=== PATIENT | male | born 1960 | race Caucasian/White ===

== ENCOUNTER 2020-08-05 16:40 | Outpatient (CLI) | payer OTHER, SELFPAY | END 2020-08-05 16:41 | disposition home or self-care (01) | LOC: ANHCOVIDVC 16:40 | PROVIDERS: PCP Family Medicine | DX: Z23 Encounter for immunization (principal) | CPT/HCPCS: 0001A; 91300 ==

== ENCOUNTER 2020-08-26 16:39 | Outpatient (CLI) | payer OTHER, SELFPAY | END 2020-08-26 16:40 | disposition home or self-care (01) | LOC: ANHCOVIDVC 16:39 | PROVIDERS: PCP Family Medicine | DX: Z23 Encounter for immunization (principal) | CPT/HCPCS: 0002A; 91300 ==

== ENCOUNTER 2020-12-28 16:11 | Outpatient (CLI) | payer BC, SELFPAY ==
--- NOTE | ~2020-12-28 | XR_ITS ---
EXAMINATION: XR chest 2V DATE: 12/28/2020 16:49 INDICATION: Shortness of breath and cough TECHNIQUE: PA and lateral views of the chest are obtained. COMPARISON: 08/12/2017 FINDINGS: There is subtle patchy opacities throughout the lungs. A suture line is noted in the right midlung zone. There is no pleural effusion or pneumothorax. The cardiomediastinal silhouette is renetta l. There is mild thoracic spondylosis. IMPRESSION: 1. Subtle patchy opacities of the lungs, consistent with atelectasis versus pneumonia. Reviewed, dictated and finalized at location B. IMPRESSION: 1. Subtle patchy opacities of the lungs, consistent with atelectasis versus pne umonia.
== END 2020-12-28 16:12 | disposition home or self-care (01) ==
LOC: ANHIMG 16:18
PROVIDERS: PCP Family Medicine; Visit Provider Nurse Practitioner Family
DX: U07.1 COVID-19 (principal)
CPT/HCPCS: 71046

== ENCOUNTER 2021-01-30 13:09 | Outpatient (CLI) | payer BC, SELFPAY ==
--- NOTE | ~2021-01-30 | XR_ITS ---
XR shoulder RT min 2V DATE: 01/30/2021 13:31 INDICATION: Right shoulder pain TECHNIQUE: 4 views COMPARISON: None FINDINGS: No fracture or dislocation, periosteal reaction or bone destruction or abnormal soft tissue calcification. Radiopaque sutures of the right lung are incidentally noted. IMPRESSION: Negative right shoulder Reviewed, dictated and finalized at location B. IMPRESSION: Negative right shoulder
== END 2021-01-30 13:10 | disposition home or self-care (01) ==
LOC: ANHIMG 13:11
PROVIDERS: PCP Family Medicine; Visit Provider Nurse Practitioner Family
DX: J18.9 Pneumonia, unspecified organism (principal); M25.511 Pain in right shoulder
CPT/HCPCS: 73030

== ENCOUNTER → 2021-07-19 16:32 | Outpatient (CLI) | payer BC, SELFPAY ==
--- NOTE | ~2021-07-19 | MR_ITS ---
EXAMINATION: MR shoulder RT wo con DATE: 07/19/2021 17:26 INDICATION: Right shoulder pain. TECHNIQUE: Magnetic resonance imaging (MRI) of the right shoulder was performed without intravenous c ontrast. Sequences included axial PD-weighted FS FSE, coronal oblique PD-weighted FS FSE and T2-weigh partha FS FSE, and sagittal oblique T2-weighted FS FSE and T1-weighted FSE. COMPARISON: Right shoulder radiographs 01/30/2021 FINDINGS: Coracoacromial arch: The acromion undersurface is curved in morphology (type II). There is severe acromioclavicular joint osteoarthritis including inferiorly directed osteophytes. There is moderate subacromial/subdeltoid bu rsitis. Rotator cuff: There is a full-thickness tear of anterior supraspinatus tendon measuring 15 mm anterior to posterior by 19 mm proximal to distal. There is a small interstitial tear of infraspinatus tendon. Teres minor tendon is normal. There is an interstitial tear of superior subscapularis tendon. There is no asymme tric fatty atrophy of the rotator cuff muscle bellies. Biceps tendon and glenoid labrum: Biceps tendon is in bicipital groove. There is a partial tear of biceps tendon. There is degenerative tearing of the glenoid labrum. Fluid: There is a small glenohumeral joint effusion. Bones/cartilage: There is shallow partial-thickness cartilage loss of glenoid. There is cartilage surface irregularity of humeral head. IMPRESSION: 1. Full-thickness rotator cuff tear. 2. Mild glenohumeral joint chondrosis. 3. Small glenohumeral joint effusion and moderate subacromial/subdeltoid bursitis. 4. Partial tear of biceps tendon. 5. Severe acromioclavicular joint osteoarthritis. Reviewed, dictated and finalized at location A. IMPRESSION: 1. Full-thickness rotator cuff tear. 2. Mild glenohumeral joint chondrosis. 3. Small glenohumeral joint effusion and moderate subacromial/subdeltoid bursit is. 4. Partial tear of biceps tendon. 5. Severe acromioclavicular joint osteoarthritis.
== END ==
PROVIDERS: PCP Family Medicine; Visit Provider Orthopaedic Surgery
DX: M19.011 Primary osteoarthritis, right shoulder (principal); M75.101 Unspecified rotator cuff tear or rupture of right shoulder, not specified as traumatic; M25.411 Effusion, right shoulder
CPT/HCPCS: 73221